=== PATIENT | female | born 1990 | race Caucasian/White ===

== ENCOUNTER 2017-06-24 09:04 | Emergency (ER) | payer BC ==
[~2017-06-24] VITALS: Ht 154.9 cm; Wt 90.3 kg
[2017-06-24 09:18] VITALS: BP_SYST 148
[2017-06-24 11:42] VITALS: BP_SYST 130
== END 2017-06-24 11:42 | disposition home or self-care (01) ==
LOC: SED 09:04
DX: F32.9 Major depressive disorder, single episode, unspecified (principal); M54.5 Low back pain; Z90.10 Acquired absence of unspecified breast and nipple
CPT/HCPCS: 72131; 99284

== ENCOUNTER 2020-12-26 16:23 | Emergency (ER) | payer SELFPAY ==
[~2020-12-26] VITALS: Ht 152.4 cm; Wt 92.1 kg
[2020-12-26 16:49] VITALS: BP_SYST 141
[2020-12-26 17:54] VITALS: BP_SYST 138
== END 2020-12-26 17:53 | disposition home or self-care (01) ==
LOC: SED 16:23
DX: M54.41 Lumbago with sciatica, right side (principal); R03.0 Elevated blood-pressure reading, without diagnosis of hypertension
CPT/HCPCS: 99283